=== PATIENT | female | born 1950 | race Caucasian/White ===

== ENCOUNTER 2020-01-21 10:01 | Outpatient (REF) | payer MEDICARE, SELFPAY | END 2020-01-21 10:02 | disposition home or self-care (01) | LOC: HO.LAB 10:01 | PROVIDERS: Visit Provider Internal Medicine | DX: Z20.828 Contact with and (suspected) exposure to other viral communicable diseases (principal) | CPT/HCPCS: 87635 ==

== ENCOUNTER 2022-10-11 14:19 | Outpatient (REF) | payer MEDICARE, OTHER, SELFPAY ==
[2022-10-11 17:55] LABS: Appearance Urine Clear; Color Urine Yellow; Glucose Urine UA Negative (Negative); Leukocyte Esterase Urine Moderate (2+) (Negative); Nitrite Urine Negative (Negative); PH 6.5 (5.0-9.0); UMIC TRIGGER UACC YES; Urine Blood Negative (Negative); Urine Ketones Negative (Negative); Urine Protein Negative (Neg-Trace)
[2022-10-11 22:29] LABS: Bacteria Urine None Seen (None Seen); Hyaline Casts Urine 0-2 /LPF (0-2); RBC Urine 0-2 /HPF (0-2); Squamous Epithelial Cell Urine 0-2 /HPF (0-2); WBC Urine 0-5 /HPF (0-5)
== END 2022-10-11 14:20 | disposition home or self-care (01) ==
LOC: HO.LNP 14:19
PROVIDERS: Visit Provider Nurse Practitioner Family
DX: R30.0 Dysuria (principal)
CPT/HCPCS: 81001; 81003